=== PATIENT | female | born 2000 | race Caucasian/White ===

== ENCOUNTER 2024-06-09 03:33 | Emergency (ER) | payer MEDICAID, OTHER ==
[~2024-06-09] VITALS: Ht 157.5 cm; Wt 50.0 kg
[2024-06-09] MEDS ORDERED: ZOFR4T PO (05:31)
[2024-06-09 05:41] LABS: Basophils # (auto) 0 10 ^3/uL (0-0.2); Basophils % (auto) 0.4 % (0.0-2.0); Eosinophils # (auto) 0.2 10 ^3/uL (0-0.8); Eosinophils % (auto) 2.3 % (0.0-7.0); Hematocrit 41.2 % (36.0-46.0); Hemoglobin 14.1 g/dL (12.2-16.2); Lymphocytes # (auto) 2.1 10 ^3/uL (0.4-5.4); Lymphocytes % (auto) 20.4 % (10.0-50.0); Mean Corpuscular Hemoglobin 33.5 pg (28.0-32.0); Mean Corpuscular Hgb Conc. 34.1 g/dL (32.0-36.0); Mean Corpuscular Volume 98.1 fL (80.0-100.0); Monocytes # (auto) 0.6 10 ^3/uL (0-1.3); Monocytes % (auto) 5.6 % (0.0-12.0); Neutrophils # (auto) 7.4 10 ^3/uL (1.6-8.6); Neutrophils % (auto) 71.3 % (37.0-80.0); Platelet Count (auto) 299 10^3/uL (140-450); Red Cell Distribution Width 13.8 % (11.8-14.3); White Blood Cell 10.3 10^3/uL (4.4-10.8)
[2024-06-09 06:00] VITALS: PULSE 79; RESP 10; O2SAT 97
[2024-06-09 06:01] LABS: Alanine Aminotransferase 26 U/L (7-40); Albumin 4.3 g/dL (3.2-4.8); Alkaline Phosphatase 95 U/L (46-116); Anion Gap 6 (5-15); Aspartate Aminotransferase 17 U/L (13-40); BUN/Creatinine Ratio 7.9 (10.0-20.0); Bilirubin, Total 0.2 mg/dL (0.2-1.0); Blood Alcohol 146.7 mg/dL (<10); Blood Urea Nitrogen < 5 mg/dL (9-23); Calcium 9.5 mg/dL (8.7-10.4); Carbon Dioxide 25 mmol/L (20-31); Chloride 110 mmol/L (98-107); Glucose 102 mg/dL (74-106); Potassium 4.6 mmol/L (3.5-5.1); Sodium 141 mmol/L (136-145); Total Protein 6.7 g/dL (5.7-8.2)
[2024-06-09 07:15] VITALS: BP 104/69; PULSE 88; TEMP 98.4
[2024-06-09] MEDS: SODIUM CHLORIDE 0.9% 1,000 ML IV ONE ×2 (07:31→07:34)
[2024-06-09] MEDS: ONDANSETRON HCL 4 MG/2 ML VIAL IV ONE (07:33)
[2024-06-09] MEDS: FAMOTIDINE (10MG/ML) 2ML VL IV ONE (07:33)
[2024-06-09 08:53] VITALS: RESP 16; O2SAT 99
== END 2024-06-09 09:24 | disposition home or self-care (01) ==
LOC: ER 03:33 → EDBD 03:33 → EDUNIT# 03:33 → ER 09:10
DX: F10.129 Alcohol abuse with intoxication, unspecified (principal); R10.2 Pelvic and perineal pain; F12.90 Cannabis use, unspecified, uncomplicated; F41.9 Anxiety disorder, unspecified; Z98.890 Other specified postprocedural states; Z88.8 Allergy status to other drugs, medicaments and biological substances
CPT/HCPCS: 36415; 80053; 80320; 84702; 85025; 96361; 96374; 96375; 99284; J2405; J3490; J7030